=== PATIENT | male | born 1980 | race Two or more races ===

== ENCOUNTER 2017-05-24 18:46 | Emergency (ER) | payer OTHER ==
[~2017-05-24] VITALS: Ht 170.2 cm; Wt 85.3 kg
--- NOTE | 2017-05-24 18:47 | NUR ---
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 PT ASSISTED TO ED BED 14. PLACED ON CONT CARDIAC AND POX MONITORING. ALL NEEDS ARE ATTENDED, KEPT WARM AND COMFORTABLE. DR. OSUNA AT BEDSIDE FOR EVALUATION
--- NOTE | 2017-05-24 19:10 | NUR ---
REPORT RECEIVED FROM CATALINA ORTEGA RN FOR LILLIAN.
--- NOTE | 2017-05-24 19:18 | NUR ---
PATIENT REFUSED LABS AND IV. MCDONALD MADE AWARE.
--- NOTE | 2017-05-24 19:18 | NUR ---
MD AT BEDSIDE SPEAKING WITH PATIENT.
--- NOTE | 2017-05-24 19:28 | NUR ---
PT REFUSED XRAY, MADE AWARE.
[2017-05-24] MEDS ORDERED: IV NS 0.9% 1,000 ML BAG IV ONE (19:30)
--- NOTE | 2017-05-24 19:36 | NUR ---
Patient discharged into [employer] custody in stable condition. Written and verbal after care instructions given. Patient verbalizes understanding of instruction. Patient ambulatory with a steady gait. Patient is awake and alert to self, day, and place.
[2017-05-24 19:42] VITALS: BP 132/87
== END 2017-05-24 19:43 ==
LOC: EDBD 18:50 → ER 18:50
DX: E86.0 Dehydration (principal); R55 Syncope and collapse
CPT/HCPCS: A4606; J7030; Z7610

== ENCOUNTER 2017-08-06 19:52 | Emergency (ER) | payer MEDICAID, MEDICARE, OTHER ==
[~2017-08-06] VITALS: Ht 175.3 cm; Wt 95.3 kg
[2017-08-06] MEDS ORDERED: HALOPERIDOL LACTATE INJ 5 MG/ML VIAL ONE (20:07)
[2017-08-06] MEDS ORDERED: diphenhydrAMINE HCL 50 MG/ML VIAL ONE (20:07)
[2017-08-06] MEDS ORDERED: LORAZEPAM INJ 2 MG/ML VIAL ONE (20:08)
--- NOTE | 2017-08-06 20:12 | NUR ---
[id number] PER EMS PT APPROACHED THE FIRE STATION "ACTING BIZZARE AND TALKING, OUT LOUD WHILE READING FROM BIBLE". PT DENIES DRUGS, SI, HI. NAD NOTED, VSS, RESP EVEN AND UNLABORED, PT WAS PUT ON MONITOR, WAITING FOR MD HOPPER.
--- NOTE | 2017-08-06 20:23 | NUR ---
MEDICATED PT ORDERED
[2017-08-06] MEDS ORDERED: HALOPERIDOL LACTATE INJ 5 MG/ML VIAL IM ONE (20:30)
[2017-08-06] MEDS ORDERED: LORAZEPAM INJ 2 MG/ML VIAL IM/IV ONE (20:30)
[2017-08-06] MEDS ORDERED: diphenhydrAMINE HCL 50 MG/ML VIAL IM ONE (20:30)
[2017-08-06 21:12] LABS: BASOPHILS % (AUTO) 0.3 % (0.0-2.0); EOSINOPHILS % (AUTO) 0.7 % (0.0-6.0); HEMATOCRIT 36 % (39-51); HEMOGLOBIN 12.6 g/dL (13.5-17.5); LYMPHOCYTES # (AUTO) 1.7 /CMM (0.8-4.8); LYMPHOCYTES % (AUTO) 31.9 % (20.0-44.0); MEAN CORPUSCULAR HEMOGLOBIN 31 PG (26.0-33.0); MEAN CORPUSCULAR HGB CONC 35 g/dl (31.0-36.0); MEAN CORPUSCULAR VOLUME 87 fL (80-96); MONOCYTES # (AUTO) 0.4 /CMM (0.1-1.30); NEUTROPHILS # (AUTO) 3.3 /CMM (1.8-8.9); NEUTROPHILS % (AUTO) 59.1 % (43.0-81.0); PLATELET COUNT (AUTO) 166 /CMM (150-450); RDW COEFFICIENT OF VARIATION 12.2 (11.5-15.0); RED BLOOD CELL COUNT(AUTO) 4.12 MIL/uL (4.5-6.0); WHITE BLOOD COUNT (AUTO) 5.4 K/uL (4.3-11.0)
[2017-08-06 21:24] LABS: CALCIUM, SERUM 8.8 mg/dL (8.5-10.1); CARBON DIOXIDE 29 mmol/L (21-32); CHLORIDE 107 mmol/L (98-107); CREATININE 1.1 mg/dL (0.6-1.3); GLUCOSE 142 mg/dL (74-106); SODIUM SERUM 142 mmol/L (136-145); UREA NITROGEN, BLOOD 22 mg/dL (7-18)
[2017-08-06 21:29] LABS: ALANINE AMINOTRANSFERASE 51 U/L (12-78); ALBUMIN 3.7 g/dL (3.4-5.0); ALCOHOL, BLOOD < 3 mg/dL (0-0); ALKALINE PHOSPHATASE 62 U/L (46-116); ASPARTATE AMINOTRANSFERASE 58 U/L (15-37); BILIRUBIN,DIRECT 0.3 mg/dL (0.0-0.2); BILIRUBIN,TOTAL 1.5 mg/dL (0.2-1.0); TOTAL PROTEIN, SERUM 6.7 g/dL (6.4-8.2)
[2017-08-06 21:30] LABS: ACETAMINOPHEN < 2 ug/ml (10-30); SALICYLATE 0.5 mg/dL (2.8-20.0)
[2017-08-06] MEDS ORDERED: LIDOCAINE 2% JEL UROJET 10 ML MM ONE (21:44)
--- NOTE | 2017-08-06 21:55 | NUR ---
URINE SENT TO LAB
[2017-08-06 22:21] LABS: APPEARANCE,URINE SL CLOUDY (CLEAR); BILIRUBIN,URINE 1+ (NEGATIVE); BLOOD, URINE NEGATIVE Ery/uL (NEGATIVE); COLOR,URINE DARK YELLO (YELLOW); KETONES,URINE 2+ (NEGATIVE); LEUKOCYTE ESTERASE ,URINE NEGATIVE (NEGATIVE); NITRITE, URINE NEGATIVE (NEGATIVE); PROTEIN,URINE 1+ mg/dl (NEGATIVE); UGLUCOSE NEGATIVE (NEGATIVE)
--- NOTE | 2017-08-06 22:50 | NUR ---
CALLED ART MATERIAL HANDLING CREW SUPERVISOR, ETA 1 HR
--- NOTE | 2017-08-06 23:18 | NUR ---
Patient is resting comfortably in bed with eyes closed. Easily aroused. VSS
[2017-08-06 23:25] LABS: BACTERIA,URINE Few /HPF (None Seen); MUCUS,URINE Few /LPF (None Seen); SQUAMOUS EPITHELIAL CELL,UR Few /HPF (None Seen)
--- NOTE | 2017-08-07 00:10 | NUR ---
ART STATUE CARVER AT BED SIDE FOR EVAL
[2017-08-07 05:19] VITALS: BP 160/115
--- NOTE | 2017-08-07 05:21 | NUR ---
Patient discharged to home in stable condition. Written and verbal after care instructions given. Patient verbalizes understanding of instruction. PT ambulatory with a steady gait VITAL SIGNS WITHIN NORMAL LIMITS.
== END 2017-08-07 05:20 | disposition home or self-care (01) ==
LOC: ER 19:55
DX: F29 Unspecified psychosis not due to a substance or known physiological condition (principal); L55.0 Sunburn of first degree; R45.1 Restlessness and agitation; F17.200 Nicotine dependence, unspecified, uncomplicated; Z59.0 Homelessness
CPT/HCPCS: 36415; 80048; 80076; 80305; 80329; 81001; 85025; 96372 ×3; 99284; 99406; A4606; G0480 ×2; J1200; J1630; J2060; J3490; J7030; Z7610; 81000-TC

== ENCOUNTER 2018-01-30 08:22 | Emergency (ER) | payer MEDICAID ==
[~2018-01-30] VITALS: Ht 175.3 cm; Wt 85.7 kg
--- NOTE | 2018-01-30 08:36 | NUR ---
PT BIB SELF C/O ABD PAIN, VOMITING/DIARRHEA & LOW BACK PAIN 10/10, PT IS AAOX4, NOT IN RESPIRATORY DISTRESS, V/S STABLE, KEPT RESTED AND COMFORTABLE, WILL CONTINUE TO MONITOR.
--- NOTE | 2018-01-30 09:10 | NUR ---
LABS DRAWNED AND URINE SPECIMEN COLLECTED AND SENT TO LAB, AWAITING RESULT.
[2018-01-30] MEDS ORDERED: ONDANSETRON HCL/PF 4 MG/2 ML VIAL ONE (09:18)
[2018-01-30] MEDS ORDERED: MORPHINE SULFATE INJ 4 MG/ML DISP.SYRIN ONE (09:19)
[2018-01-30 09:23] LABS: BASOPHILS % (AUTO) 0.4 % (0.0-2.0); EOSINOPHILS % (AUTO) 1.9 % (0.0-6.0); HEMATOCRIT 49 % (39-51); HEMOGLOBIN 16.7 g/dL (13.5-17.5); LYMPHOCYTES # (AUTO) 2.4 /CMM (0.8-4.8); MEAN CORPUSCULAR HGB CONC 34 g/dl (31.0-36.0); MEAN CORPUSCULAR VOLUME 88 fL (80-96); MONOCYTES # (AUTO) 0.5 /CMM (0.1-1.30); MONOCYTES % (AUTO) 5.4 % (2.0-12.0); NEUTROPHILS # (AUTO) 6.2 /CMM (1.8-8.9); NEUTROPHILS % (AUTO) 66.3 % (43.0-81.0); PLATELET COUNT (AUTO) 242 /CMM (150-450); RED BLOOD CELL COUNT(AUTO) 5.51 MIL/uL (4.5-6.0); WHITE BLOOD COUNT (AUTO) 9.4 K/uL (4.3-11.0)
[2018-01-30 09:27] LABS: POTASSIUM 4.3 mmol/L (3.5-5.1)
[2018-01-30 09:29] LABS: BILIRUBIN,URINE NEGATIVE (NEGATIVE); BLOOD, URINE NEGATIVE Ery/uL (NEGATIVE); COLOR,URINE YELLOW (YELLOW); KETONES,URINE NEGATIVE (NEGATIVE); LEUKOCYTE ESTERASE ,URINE NEGATIVE (NEGATIVE); NITRITE, URINE NEGATIVE (NEGATIVE); PROTEIN,URINE NEGATIVE (NEGATIVE); UGLUCOSE NEGATIVE (NEGATIVE); UROBILINOGEN,URINE 0.2 EU/dL (0.2)
[2018-01-30] MEDS ORDERED: MORPHINE SULFATE INJ 2 MG/ML DISP.SYRIN IV ONE (09:30)
[2018-01-30] MEDS ORDERED: IV NS 0.9% 1,000 ML BAG IV ONE (09:30)
[2018-01-30] MEDS ORDERED: ONDANSETRON HCL/PF 4 MG/2 ML VIAL IVP ONE (09:30)
[2018-01-30 09:33] LABS: ALBUMIN 3.9 g/dL (3.4-5.0); BILIRUBIN,DIRECT 0.1 mg/dL (0.0-0.2); BILIRUBIN,TOTAL 0.4 mg/dL (0.2-1.0); TOTAL PROTEIN, SERUM 7.5 g/dL (6.4-8.2)
[2018-01-30 09:43] LABS: APPEARANCE,URINE CLEAR (CLEAR)
[2018-01-30] MEDS ORDERED: KETOROLAC TROMETHAMINE INJ 30 MG/ML VIAL ONE (10:12)
--- NOTE | 2018-01-30 10:24 | NUR ---
IV removed. Catheter intact and site benign. Pressure and 4x4 applied to site. No bleeding noted. Patient discharged to home in stable condition. Written and verbal after care instructions given. Patient verbalizes understanding of instruction.
[2018-01-30 10:26] VITALS: BP 123/71
[2018-01-30] MEDS ORDERED: KETOROLAC TROMETHAMINE INJ 30 MG/ML VIAL IV ONE (10:30)
== END 2018-01-30 10:27 | disposition home or self-care (01) ==
LOC: ER 08:25
DX: R10.84 Generalized abdominal pain (principal); G89.29 Other chronic pain; M54.6 Pain in thoracic spine; M54.5 Low back pain; R11.2 Nausea with vomiting, unspecified; R19.7 Diarrhea, unspecified; F17.200 Nicotine dependence, unspecified, uncomplicated
CPT/HCPCS: 36415; 80048; 80076; 81001; 83690; 85025; 96361; 96374; 96375; 99283; A4606; J1885; J2270; J2405; J7030; Z7610; 81000-TC

== ENCOUNTER 2018-02-17 07:12 | Emergency (ER) | payer MEDICAID ==
[~2018-02-17] VITALS: Ht 177.8 cm; Wt 86.2 kg
--- NOTE | 2018-02-17 07:26 | NUR ---
BIB SELF W C/O LEFT ARMPIT BOIL WITH PUS x 4 DAYS, PRICKED WITH THE NAIL THIS MORNING. TO ER BED 12, HOOKED TO MONITOR, CHANGED TO ANAMARIAAnjel, AWAITING MD HOPPER
--- NOTE | 2018-02-17 07:39 | NUR ---
VERBAL ORDER RECEIVED FROM DR BEAL FOR LIDOCAINE 1%-EPI FOR PATIENTS I&D
[2018-02-17] MEDS ORDERED: LIDOCAINE 1%-EPI 1:100,000 20 ML VIAL ONE (07:41)
--- NOTE | 2018-02-17 08:05 | NUR ---
AT BEDSIDE FOR INCISION AND DRAINAGE
--- NOTE | 2018-02-17 08:21 | NUR ---
Patient discharged to home in stable condition. Written and verbal after care instructions given. Patient verbalizes understanding of instruction.
[2018-02-17 08:22] VITALS: BP 142/76
[2018-02-17] MEDS ORDERED: LIDOCAINE 1%-EPI 1:100,000 50 ML VIAL IJ ONE (08:30)
== END 2018-02-17 08:23 | disposition home or self-care (01) ==
LOC: ER 07:17
DX: L02.412 Cutaneous abscess of left axilla (principal); L03.112 Cellulitis of left axilla; F17.200 Nicotine dependence, unspecified, uncomplicated
CPT/HCPCS: A6403; J3490

== ENCOUNTER 2018-02-20 03:22 | Emergency (ER) | payer MEDICAID ==
[~2018-02-20] VITALS: Ht 175.3 cm; Wt 90.7 kg
[2018-02-20 03:25] VITALS: BP 120/71
--- NOTE | 2018-02-20 03:30 | NUR ---
Pt BIBRA for Back Pain for the past 3 days that got worse tonight. 11/25 Pt states unable to sleep. No trauma. AAOX4. Respirations even and unlabored. Pt put on the monitor. Pending eval from JUAN JOSÉ MCDONALD.
[2018-02-20] MEDS ORDERED: KETOROLAC TROMETHAMINE INJ 60 MG/2 ML VIAL IM ONE ×2 (03:46→04:00)
[2018-02-20] MEDS ORDERED: HYDROCODONE/APAP 10/325MG 1 EA TABLET ONE (03:47)
[2018-02-20] MEDS ORDERED: ONDANSETRON 4 MG TAB.RAPDIS ONE (03:47)
[2018-02-20] MEDS ORDERED: HYDROCODONE/APAP 10/325MG 1 EA TABLET PO ONE (04:00)
[2018-02-20] MEDS ORDERED: ONDANSETRON 4 MG TAB.RAPDIS SL ONE (04:00)
== END 2018-02-20 04:05 | disposition home or self-care (01) ==
LOC: ER 03:24
DX: M54.5 Low back pain (principal); F17.200 Nicotine dependence, unspecified, uncomplicated
CPT/HCPCS: 96372; 99283; A4606; J1885; Q0162; Z7610

== ENCOUNTER 2018-07-15 23:15 | Emergency (ER) | payer MEDICAID ==
[~2018-07-15] VITALS: Ht 177.8 cm; Wt 98.9 kg
--- NOTE | 2018-07-15 23:54 | NUR ---
PT PRESENTED TO THE ER WITH A C/O RT GROIN ABCESS, REDNESS NOTED. PT AMBULATED TO THE BATHROOM AND A URINE SAMPLE WAS OBTAINED. PT THEN AMBULATED TO ER 10 WITH A STEADY GAIT.
--- NOTE | 2018-07-16 | NUR ---
Courtney HENDRIX PA-C IS AT THE BEDSIDE EXAMINING THE PT. I WAS THE egg gatherer WHO accompanied male patient for PAC. JUAN RAMON
--- NOTE | 2018-07-16 00:05 | NUR ---
CALLED RADIOLOGY RE: US ORDER.
[2018-07-16] MEDS ORDERED: HYDROCODONE/APAP 5/325MG 1 EACH TABLET ONE (00:08)
[2018-07-16] MEDS ORDERED: ONDANSETRON 4 MG TAB.RAPDIS ONE (00:08)
[2018-07-16] MEDS ORDERED: HYDROCODONE/APAP 5/325MG 1 EACH TABLET PO ONE (00:30)
[2018-07-16] MEDS ORDERED: ONDANSETRON 4 MG TAB.RAPDIS PO ONE (00:30)
--- NOTE | 2018-07-16 00:30 | NUR ---
US IS AT [facility] BEDSIDE.
--- NOTE | 2018-07-16 01:53 | NUR ---
PT DENIED BEING HOMELESS. PT STATED THAT HE HAD A HOME.
--- NOTE | 2018-07-16 01:53 | NUR ---
Patient discharged to home in stable condition. Written and verbal after care instructions given. Patient verbalizes understanding of instruction AND RX. PT WAS INSTRUCTED NOT TO DRIVE. PT AMBULATED OUT WITH A STEADY GAIT. VSS
[2018-07-16 01:55] VITALS: BP 128/76
== END 2018-07-16 02:02 | disposition home or self-care (01) ==
LOC: ER 23:17
DX: R59.1 Generalized enlarged lymph nodes (principal); F17.200 Nicotine dependence, unspecified, uncomplicated
CPT/HCPCS: 76870; 99284; Q0162